=== PATIENT | female | born 1950 | race Caucasian/White ===

== ENCOUNTER 2021-09-02 00:56 | Emergency (ER) | payer OTHER ==
[~2021-09-02] VITALS: Ht 170.2 cm; Wt 106.6 kg
--- NOTE | ~2021-09-02 | EMS ---
[address] [address] EMS Patient Care Report Name: NIA COLES Room #: DEP Raheem#: [id number] Admission: 09/02/21 Attend Phys: Discharge: 09/02/21 Date of : 52 Report #: [id number] THIS REPORT FOR: //name// Report Transmitted: 09/05/2021 13:26 EMS Care Summary [place], [place]/[facility] Incident [id number] @ 09/02/2021 00:26 Incident Location [address] [place], [place] [id number] Patient TRISHA COLES Female, 71 Years 1950 Patient Address [address] [place], [place] [id number] Patient History Hyperlipidemia,Gastro-Esophageal Reflux Disease (GERD),Urinary Tract Infection (UTI),Back Pain (Chronic), Patient Allergies Sulfa, Patient Medications Cephalexin, Acetaminophen, Aspirin, Atorvastatin, Pantoprazole, Chief Complaint ABDOMINAL PAIN Disposition Transported No Lights/[place] Reason Abdominal Pain/Problems Transported To [facility] Narrative M36 was dispatched for abdominal pain. Arrived on-scene to find 71 yo female [facility] [address] [place] [address] EMS Patient Care Report Name: NIA COLES Room #: DEP ER Raheem#: [id number] Admission: 09/02/21 Attend Phys: Discharge: 09/02/21 Date of : 52 Report #: [id number] sitting in a chair. Patient reported started feeling ill with flu-like symptoms this evening and now is experiencing abdominal discomfort that is new. Patient is concerned and requested transport to closest facility. Patient was COA x4 and in mild distress. Patient ABC's were intact. Patient was able to stand and ambulate. Patient reported generalized fatigue/weakness. Patient stroke scale was negative. Patient skin was normal. Patient complained of abdominal pain, malaise, fatigue, weakness, UTI complications and fever. Patient rated pain 6/10. Patient denied headache, blurry vision, nausea, dizziness, syncope, jaw pain, neck pain, arm pain, chest pain or shortness of breath. Patient report was obtained and assessment was performed. Patient ambulated to ambulance with ems assistance and sat on stretcher with all safety straps applied. Patient vitals were assessed. Patient was transported routine. Patient was unloaded and taken to ED. Patient transferred self from stretcher to bed. Patient signed for transport. Patient's RN signed for receiving facility. Patient care and report turned over to RN. M36 returned to service. Initial Vitals @00:53P: 110,R: 16,BP: 110/64,Pain: 6/10,GCS: 15,SpO2: 98,Revised Trauma: 12, @00:40P: 114,R: 16,BP: 130/78,Pain: 6/10,GCS: 15,SpO2: 95,Revised Trauma: 12, Assessments @00:35MENTAL:Event Oriented,Time Oriented,Place Oriented,Person Oriented,SKIN:HEENT:Eyes: Right Pupil: 4-mm,Eyes: Left Pupil: 4-mm,Head/Face: No Abnormalities,Neck/Airway: No Abnormalities,LUNG SOUNDS:Left Lower: Other,Right Lower: Other,Left Lower: Tenderness,Right Lower: Tenderness,Right Lower: Distension,Right Upper: Other,Left Lower: Distension,Right Upper: Distension,Right Upper: Tenderness,Left Upper: Other,Left Upper: Tenderness,Left Upper: Distension,ABDOMEN:Left Lower: Other,Right Lower: Other,Left Lower: Tenderness,Right Lower: Tenderness,Right Lower: Distension,Right Upper: Other,Left Lower: Distension,Right Upper: Distension,Right Upper: Tenderness,Left Upper: Other,Left Upper: Tenderness,Left Upper: Distension,PELVIS//GI:No Abnormalities,EXTREMITIES:Right Leg: Weakness,Right Arm: Weakness,Left Leg: Weakness,Left Arm: Weakness,PULSE:NEURO: Impression Abdominal Pain Procedures @00:35 ALS Assessment Response: UnchangedSucceeded Timeline [address] [address] EMS Patient Care Report Name: NIA COLES Room #: [facility] Maciel#: [id number] Admission: 09/02/21 Attend Phys: Discharge: 09/02/21 Date of : 52 Report #: [id number] 00:22,Call Received 00:22,Dispatch Notified 00:26,Dispatched 00:27,En Route 00:32,On Scene 00:34,At Patient 00:35,ALS Assessment,Response: UnchangedSucceeded, 00:40,BP: 130/78 M,PULSE: 114,RR: 16 R,SPO2: 95 Ox,ETCO2: ,BG: ,PAIN: 6,GCS: 15, 00:43,Depart Scene 00:53,BP: 110/64 M,PULSE: 110,RR: 16 R,SPO2: 98 Ox,ETCO2: ,BG: ,PAIN: 6,GCS: 15, 00:53,At Destination 01:03,Call Closed Disclaimer [email or web address] Copyright 2021 [employer] This EMS Care Summary contains data elements from the applicable legal record (which may be displayed differently). It is designed to provide pertinent information for the following purposes: continuity of care, clinical quality, and state data reporting. The complete legal record is available to ED staff and administrators of the receiving hospital in ES's Patient Tracker. All data is provided "as is."
[2021-09-02 01:30] LABS: BASOPHILS 0.2 % (0.0-2.0); EOSINOPHILS 0.6 % (0.0-3.0); HEMATOCRIT 40.7 % (37.0-47.0); HEMOGLOBIN 13.6 gm/dL (12.0-15.0); LYMPHOCYTES 1.4 % (24.0-44.0); MCH 30.6 pg (26.0-34.0); MCHC 33.4 g/dL (28.0-37.0); MCV 91.8 fL (80.0-100.0); MONOCYTES 1.6 % (1.0-8.0); PLATELET COUNT 260 thou/uL (150-400); POLYS 96.2 % (36.0-66.0); RBC 4.44 mil/uL (4.20-5.00); RDW 13.6 % (10.5-14.5); WBC 11.4 thou/uL (4.0-11.0)
[2021-09-02 01:33] LABS: ANION GAP 12 mmol/L (7-16); BUN 28 mg/dL (7-18); CALCIUM 9.3 mg/dL (8.5-10.1); CHLORIDE 102 mmol/L (98-107); CO2 23 mmol/L (21-32); CREATININE 1.3 mg/dL (0.6-1.0); GLUCOSE 139 mg/dL (74-106); POTASSIUM 3.7 mmol/L (3.5-5.1); SODIUM 137 mmol/L (136-145)
[2021-09-02 01:47] LABS: ALBUMIN 3.1 g/dL (3.4-5.0); DIRECT BILIRUBIN < 0.1 mg/dL (<0.1-0.2); LIPASE 136 U/L (73-393); SGOT 194 U/L (15-37); SGPT 153 U/L (30-65); TOTAL BILIRUBIN 0.4 mg/dL (0.2-1.0); TOTAL PROTEIN 6.8 g/dL (6.4-8.2)
[2021-09-02 05:26] LABS: URINE BILIRUBIN NEGATIVE (Negative); URINE BLOOD TRACE (Negative); URINE CLARITY SL CLOUDY; URINE COLOR ORANGE; URINE GLUCOSE-RANDOM* TRACE (Negative); URINE KETONES NEGATIVE (Negative); URINE PROTEIN (DIPSTICK) TRACE (Negative); URINE SPECIFIC GRAVITY <= 1.005 (1.005-1.035)
[2021-09-02 05:34] VITALS: BP 98/56
[2021-09-02 05:34] LABS: URINE LEUKOCYTES-REFLEX 3+ (Negative); URINE NITRITE-REFLEX POSITIVE (Negative)
[2021-09-02 05:36] LABS: BACTERIA-REFLEX 1-9 Few /HPF (None Seen); CASTS None Seen /LPF (None Seen); CRYSTALS None Seen /LPF (None Seen); MUCUS 0-3 Light strn/LPF (None Seen); SQUAMOUS 0-3 Few /LPF (0-3); URINE RBC 3-10 Few /HPF (NONE SEEN); URINE WBC-REFLEX >25 Many /HPF (0-5)
--- NOTE | 2021-09-02 07:34 | EKG ---
[address] [place] [address] ELECTROCARDIOGRAM REPORT Name: NIA COLES Room #: [facility]#: [id number] Admission: 09/02/21 Attend Phys: Discharge: Date of : 52 Report #: [id number] [facility] ED Test Date: 2021-09-02 Test Time: 01:06:44 Pat Name: NIA COLES Department: Room: Gender: F Still Photographer: FROILAN : 1950 Requested By: Ken Pa Order Number: [id number] MD: Franklyn Bear Measurements Intervals Veyo Rate: 108 P: 33 ID: [id number] QRS: -46 QRSD: 80 T: -5 QT: 365 QTc: 490 Interpretive Statements Sinus tachycardia Abnormal R-wave progression, late transition Inferior infarct, old No previous ECG available for comparison Electronically Signed On 09-02-2021 7:33:50 [employer] by Franklyn Bear [email or web address] <ELECTRONICALLY SIGNED> By: Franklyn Bear MD, [facility] 09/02/21 [id number] Franklyn Bear MD, FACC /EPI
== END 2021-09-02 06:22 | disposition home or self-care (01) ==
LOC: ER 00:56
PROVIDERS: Student in an Organized Health Care Education/Training Program
DX: R10.10 Upper abdominal pain, unspecified (principal); K59.00 Constipation, unspecified; Z20.822 Contact with and (suspected) exposure to COVID-19